=== PATIENT | female | born 1935 | race Caucasian/White ===

== ENCOUNTER 2017-02-23 09:11 | Inpatient (IN) | payer MEDICARE, BC ==
[2017-02-23 09:41] LABS: Glucose,Whole Blood 111 mg/dL (75-99)
[2017-02-23] MEDS ORDERED: SODIUM CHLORIDE 0.9% 500 ML IV STA (09:42)
--- NOTE | 2017-02-23 09:44 | ED ---
General Adult HPI - General Chief complaint: Syncope Stated complaint: WEAKNESS, NEAR SYNCOPE Time Seen by Provider: 02/23/17 09:15 Source: patient, family, RN notes reviewed Mode of arrival: ambulatory Limitations: no limitations - History of Present Illness Initial comments: This is an 81-year-old female who presents emergency department with past medical history significant for hypertension high cholesterol. Patient states this morning she got up went to the bathroom and walk back to bed when she laid down she started getting tingling sensation all over her body and a ringing in her ears and she felt as though she might pass out. Patient states when she opened her eyes at less than the symptoms they remained for a little while. Patient states she did attempt to shut her eyes and a couple more occasions and the symptoms seemed to recur. Patient denied any headache patient denies any numbness or focal weakness. Patient states she has generalized weakness but even that is very slight. Patient denies any chest pain palpitations difficulty breathing or shortness of breath per patient denies any recent fever chills or cough per patient denies any abdominal pain patient denies any nausea vomiting diarrhea. Patient denies any similar symptoms in the past. Patient denies ever having any syncopal episode. - Related Data Home Medications Medication Instructions Recorded Confirmed Aspirin EC [Ecotrin Low Dose] 81 mg PO QAM 02/23/17 02/23/17 Calcium Carbonate [Calcium] 600 mg PO QAM 02/23/17 02/23/17 Lisinopril-Hctz 20-25 mg 1 tab PO QAM 02/23/17 02/23/17 [Zestoretic 20-25] Lovastatin [Mevacor] 40 mg PO HS 02/23/17 02/23/17 Allergies Allergy/AdvReac Type Severity Reaction Status Date / Time Unable to Assess Allergy Unverified 02/23/17 10:24 Review of Systems ROS Statement: Those systems with pertinent positive or pertinent negative responses have been documented in the HPI. ROS Other: All systems not noted in ROS Statement are negative. Past Medical History History of Any Multi-Drug Resistant Organisms: None Reported Past Surgical History: Joint Replacement Additional Past Surgical History / Comment(s): knee replacement, bunion surgery Past Psychological History: No Psychological Hx Reported Smoking Status: Former smoker Past Alcohol Use History: Rare Past Drug Use History: None Reported General Exam - General Exam Comments Initial Comments: GENERAL: Patient is well-developed and well-nourished. Patient is nontoxic and well- hydrated and is in mild distress. ENT: Neck is soft and supple. No significant lymphadenopathy is noted. Oropharynx is clear. Moist mucous membranes. Neck has full range of motion without eliciting any pain. EYES: The sclera were anicteric and conjunctiva were pink and moist. Extraocular movements were intact and pupils were equal round and reactive to light. Eyelids were unremarkable. PULMONARY: Unlabored respirations. Good breath sounds bilaterally. No audible rales rhonchi or wheezing was noted. CARDIOVASCULAR: Irregular rate rhythm at about 120 minutes ABDOMEN: Soft and nontender with normal bowel sounds. No palpable organomegaly was noted. There is no palpable pulsatile mass. SKIN: Skin is clear with no lesions or rashes and otherwise unremarkable. NEUROLOGIC: Patient is alert and oriented x3. Cranial nerves II through XII are grossly intact. Motor and sensory are also intact. Normal speech, volume and content. Symmetrical smile. Cerebellar exam grossly intact. MUSCULOSKELETAL: Normal extremities with adequate strength and full range of motion. No lower extremity swelling or edema. No calf tenderness. LYMPHATICS: No significant lymphadenopathy is noted PSYCHIATRIC: Normal psychiatric evaluation. Limitations: no limitations Course Vital Signs 02/23/17 02/23/17 02/23/17 09:13 10:04 10:28 Temperature 97.0 F L 98.0 F Pulse Rate 109 H 81 98 Respiratory 18 16 16 Rate Blood Pressure 163/96 165/91 168/94 O2 Sat by Pulse 96 98 98 Oximetry Medical Decision Making - Medical Decision Making EKG shows atrial fibrillation with rapid ventricular response at 129 bpm. Patient does not have a history of atrial fibrillation. Patient also has pauses were her heart rate drops down into the 40s and there is no obvious P waves noted associated with the QRS. Patient at these times feels somewhat lightheaded. I spoke with Dr. Marie he wanted the patient heparin but did not want to slow her heart rate down because of these pauses. - Lab Data Result diagrams: 02/23/17 09:50 02/23/17 09:50 Lab Results 02/23/17 02/23/17 02/23/17 Range/Units 09:32 09:50 09:50 WBC 9.7 (3.8-10.6) k/uL RBC 4.68 (3.80-5.40) m/uL Hgb 14.8 (11.4-16.0) gm/dL Hct 43.2 (34.0-46.0) % MCV 92.5 (80.0-100.0) fL MCH 31.7 (25.0-35.0) pg MCHC 34.3 (31.0-37.0) g/dL RDW 13.5 (11.5-15.5) % Plt Count 283 (150-450) k/uL Neutrophils % 66 % Lymphocytes % 26 % Monocytes % 5 % Eosinophils % 0 % Basophils % 0 % Neutrophils # 6.4 (1.3-7.7) k/uL Lymphocytes # 2.5 (1.0-4.8) k/uL Monocytes # 0.5 (0-1.0) k/uL Eosinophils # 0.0 (0-0.7) k/uL Basophils # 0.0 (0-0.2) k/uL PT (9.0-12.0) sec INR (<1.1) APTT (22.0-30.0) sec Sodium 140 (137-145) mmol/L Potassium 4.0 (3.5-5.1) mmol/L Chloride 105 (98-107) mmol/L Carbon Dioxide 25 (22-30) mmol/L Anion Gap 10 mmol/L BUN 18 H (7-17) mg/dL Creatinine 0.74 (0.52-1.04) mg/dL Est GFR (MDRD) Af Amer >60 (>60 ml/min/1.73 sqM) Est GFR (MDRD) Non-Af >60 (>60 ml/min/1.73 sqM) Glucose 120 H (74-99) mg/dL POC Glucose (mg/dL) 111 H (75-99) mg/dL POC Glu Recycling Operations Manager ID Adri Pereira Calcium 9.6 (8.4-10.2) mg/dL Magnesium 2.1 (1.6-2.3) mg/dL Total Bilirubin 1.2 (0.2-1.3) mg/dL AST 25 (14-36) U/L ALT 23 (9-52) U/L Alkaline Phosphatase 80 (38-126) U/L Total Protein 7.4 (6.3-8.2) g/dL Albumin 4.1 (3.5-5.0) g/dL 02/23/17 Range/Units 09:50 WBC (3.8-10.6) k/uL RBC (3.80-5.40) m/uL Hgb (11.4-16.0) gm/dL Hct (34.0-46.0) % MCV (80.0-100.0) fL MCH (25.0-35.0) pg MCHC (31.0-37.0) g/dL RDW (11.5-15.5) % Plt Count (150-450) k/uL Neutrophils % % Lymphocytes % % Monocytes % % Eosinophils % % Basophils % % Neutrophils # (1.3-7.7) k/uL Lymphocytes # (1.0-4.8) k/uL Monocytes # (0-1.0) k/uL Eosinophils # (0-0.7) k/uL Basophils # (0-0.2) k/uL PT 10.6 (9.0-12.0) sec INR 1.0 (<1.1) APTT 23.5 (22.0-30.0) sec Sodium (137-145) mmol/L Potassium (3.5-5.1) mmol/L Chloride (98-107) mmol/L Carbon Dioxide (22-30) mmol/L Anion Gap mmol/L BUN (7-17) mg/dL Creatinine (0.52-1.04) mg/dL Est GFR (MDRD) Af Amer (>60 ml/min/1.73 sqM) Est GFR (MDRD) Non-Af (>60 ml/min/1.73 sqM) Glucose (74-99) mg/dL POC Glucose (mg/dL) (75-99) mg/dL POC Glu Recycling Operations Manager ID Calcium (8.4-10.2) mg/dL Magnesium (1.6-2.3) mg/dL Total Bilirubin (0.2-1.3) mg/dL AST (14-36) U/L ALT (9-52) U/L Alkaline Phosphatase (38-126) U/L Total Protein (6.3-8.2) g/dL Albumin (3.5-5.0) g/dL Critical Care Time Critical Care Time: Yes Total Critical Care Time: 35 Disposition Clinical Impression: Atrial fibrillation with RVR Disposition: ADMITTED IP TO THIS HOSP Referrals: Kendra Davila MD [Primary Care Provider] - 1-2 days Time of Disposition: 10:46
[2017-02-23 10:11] LABS: Basophils % (A) 0 %; CH 32.1; CHCM 34.9; Eosinophils % (A) 0 %; HCT 43.2 % (34.0-46.0); HGB 14.8 gm/dL (11.4-16.0); Luc % (Auto) 2; Lymphocytes # (A) 2.5 k/uL (1.0-4.8); Lymphocytes % (A) 26 %; MCH 31.7 pg (25.0-35.0); MCHC 34.3 g/dL (31.0-37.0); MCV 92.5 fL (80.0-100.0); Mean Platelet Volume 7.8; Monocytes # (A) 0.5 k/uL (0-1.0); Monocytes % (A) 5 %; Neutrophils # (A) 6.4 k/uL (1.3-7.7); Neutrophils % (A) 66 %; RBC 4.68 m/uL (3.80-5.40); RDW 13.5 % (11.5-15.5); WBC 9.7 k/uL (3.8-10.6); WBC (Perox) 8.95
[2017-02-23 10:16] LABS: Partial Thromboplastin Time 23.5 sec (22.0-30.0); Prothrombin Time 10.6 sec (9.0-12.0)
[2017-02-23 10:19] LABS: ALT 23 U/L (9-52); AST 25 U/L (14-36); Alkaline Phosphatase 80 U/L (38-126); Anion Gap 10 mmol/L; Blood Urea Nitrogen 18 mg/dL (7-17); Calcium 9.6 mg/dL (8.4-10.2); Carbon Dioxide 25 mmol/L (22-30); Chloride 105 mmol/L (98-107); Glucose 120 mg/dL (74-99); Magnesium 2.1 mg/dL (1.6-2.3); Non-African American GFR(MDRD) >60 (>60 ml/min/1.73 sqM); Sodium 140 mmol/L (137-145); Total Bilirubin 1.2 mg/dL (0.2-1.3); Total Protein 7.4 g/dL (6.3-8.2)
--- NOTE | 2017-02-23 10:20 | XR ---
EXAMINATION TYPE: XR chest 2V DATE OF EXAM: 02/23/2017 HISTORY: Chest Pain. REFERENCE: NONE. FINDINGS: There are bilateral pulmonary nodules. These are quite dense and likely representing granul omas. Pleural spaces are clear. The heart is not enlarged. IMPRESSION: 1. NO ACUTE INTRATHORACIC ABNORMALITY. 2. 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 THIS COULD BE CONFIRMED WITH A CT SCAN OF THE CHEST OR PRIOR IMAGING.
[2017-02-23 10:42] LABS: Troponin I 0.022 ng/mL (0.000-0.034)
[2017-02-23] MEDS ORDERED: HEPARIN SODIUM,PORCINE 5,000 UNIT/ML 1 ML VIAL IV ONE (10:42)
[2017-02-23] MEDS ORDERED: HEPARIN SODIUM,PORCINE/D5W PMX 25,000 UNIT in DEXTROSE/WATER 1 500ML.BAG IV SCH (10:45)
[2017-02-23] MEDS ORDERED: NITROGLYCERIN SL TABS 0.4 MG TAB SUBLINGUAL PRN (10:46)
--- NOTE | 2017-02-23 13:22 | CONS ---
DATE OF CONSULTATION: CHIEF COMPLAINT: Atrial fibrillation. Ricarda is an 81-year-old lady with history of hypertension and dyslipidemia who presented to the hospital having had episodes of dizziness and near syncope, one episode yesterday and again today. She was found to be in atrial fibrillation with rapid ventricular rate when she first came to the ER and while in the emergency room she has had episodes of bradycardia that were related to conversion to sinus rhythm. Since her initial arrival in the ER, I have had conversations with the ER doctor and directed her care. She is converted to sinus rhythm and currently she is in stable sinus rhythm and is free of symptoms. The patient has hypertension and her blood pressures are poorly controlled. She also has dyslipidemia. I am adding Norvasc 10 mg daily, along with the Zestoretic that she is already on. She is on IV heparin and I am going to switch her to Eliquis 2.5 b.i.d. if she is covered per insurance. We do not have a TSH, which I am going to check. Echocardiogram will be ordered. I reviewed the records from the ER. Past medical history is significant for hypertension and dyslipidemia. Medications include Zestoretic 1 q. daily, lovastatin 40 q. daily. ALLERGIES: There are no known drug allergies. Family history is negative for premature coronary artery disease. Social history is negative for smoking, EtOH abuse or drug abuse. REVIEW OF SYSTEMS: HEENT: Unremarkable. CARDIAC: As described above. RESPIRATORY: Negative. GI: Negative. GENITOURINARY: Negative. ALLERGY/IMMUNOLOGY: Negative. MUSCULOSKELETAL: Significant for arthritis. PSYCHOSOCIAL: Negative. ENDOCRINE: Negative. HEMATOLOGIC: Negative. DERMATOLOGY: Negative. CONSTITUTIONAL: Negative. ONCOLOGICAL: Negative. The rest of the system review is not relevant. On exam, comfortable at rest. Heart rate is around 80 to 90 beats per minute, blood pressure is 168/101, respiratory rate is 18. There is no jugular venous distention. Carotid upstroke is normal. There is no bruit. Chest exam reveals good air entry bilaterally. Heart exam reveals first and second heart sounds regular rhythm. No murmur. Abdomen is soft. Exam of the extremities did not reveal edema. Peripheral pulses are felt. CONCRETE PRODUCTS DISPATCHER exam did not reveal focal neurological deficits. Labs show a hemoglobin of 14.8. Platelet count is 283. Creatinine is 0.7. Potassium is 4. Troponin is 0.022. EKG shows sinus rhythm with poor R wave progression. ASSESSMENT: 1. Paroxysmal atrial fibrillation. 2. Dizziness and near syncope secondary to bradycardia. PLAN: The patient is doing well. I will continue the IV heparin that the patient is on. If insurance covers it, I am going to put her on Eliquis 2.5 b.i.d. I will get another set of troponin. If patient is doing well, we can discharge her home tomorrow and pursue her investigations and therapies in the outpatient setting.
[2017-02-23] MEDS: amLODIPine 10 MG TAB PO SCH (14:10)
[2017-02-23 17:08] LABS: Creatine Kinase MB 1.1 ng/mL (0.0-2.4); Troponin I 0.019 ng/mL (0.000-0.034)
[2017-02-23] MEDS: HEPARIN SODIUM,PORCINE 5,000 UNIT/ML 1 ML VIAL IV PRN (17:44)
[2017-02-23] MEDS: ATORVASTATIN 10 MG TAB PO SCH (22:00)
[2017-02-23 23:28] LABS: Creatine Kinase MB 1.1 ng/mL (0.0-2.4); Troponin I 0.025 ng/mL (0.000-0.034)
[2017-02-24 03:47] LABS: Cholesterol 131 mg/dL (<200); HDL Cholesterol 39 mg/dL (40-60); Triglycerides 114 mg/dL (<150)
[2017-02-24] MEDS: HEPARIN SODIUM,PORCINE 5,000 UNIT/ML 1 ML VIAL IV PRN (06:54)
--- NOTE | 2017-02-24 07:24 | HP ---
DATE OF ADMISSION: Reason for admission is dizziness. HISTORY OF PRESENT ILLNESS: This is an 81-year-old pleasant lady with history of hypertension comes into the hospital with sudden onset symptoms of dizziness and almost passing out. Patient stated that she did not have any blurry vision, was completely unsteady which continued to happen for a period of time. Thereafter, patient did say to have some associated palpitations; however, denies having any chest pain, any focal weakness. Patient was seen in the emergency room, was noted to be in atrial fibrillation with rapid ventricular rate, thereafter converted into sinus rhythm. Patient is currently maintained on IV heparin. During my evaluation, patient states that she does not have similar symptoms any longer; however, on the monitoring engineer, patient appears to have some pauses and appears to have some degree of atrial fibrillation that is ongoing as well. Past medical history significant for hypertension and dyslipidemia. Medications includes: 1. Zestril. 2. Lovastatin. ALLERGIES: No known drug allergies. Doses were reviewed and appropriately reconciled. Family history includes premature coronary artery disease. SOCIAL HISTORY: Significant for smoking; quit about 25 years ago. No EtOH or drug abuse. REVIEW OF SYSTEMS: A 14-point review of systems was done; none pertinent than what was discussed above. Other home medications include: 1. Calcium. 2. Aspirin. PHYSICAL EXAM: VITALS: Temperature 97.3, heart rate is 120, blood pressure is 185/96, saturating 96% on room air. GENERAL APPEARANCE: Alert, oriented x3. LUNGS: Diminished breath sounds. No rhonchi, wheezing or crackles. HEART: Irregularly irregular. No murmurs appreciated. ABDOMEN: Soft, nontender, no organomegaly. Head is atraumatic, normocephalic. Pupils equal, round, and react to light and accommodation. LOWER EXTREMITIES: No edema noted. NEUROLOGICALLY: No focal motor or sensory deficits noted. NECK: Supple. No JVD. No masses appreciated. Laboratory data includes hemoglobin 14.8, hematocrit 42.2, white count of 9.7, platelets of 283. Sodium 140, potassium 4, chloride 105, bicarb 25, BUN 18, creatinine 0.74. TSH is 1.4. ASSESSMENT AND PLAN: 1. New onset atrial fibrillation with rapid ventricular rate with some pauses, is currently going in and out of atrial fibrillation. 2. Hypertension, slightly accelerated without symptoms. 3. Dyslipidemia. 4. History of tobacco use. PLAN: Continue ongoing care. Patient CHADS VASC score is at least 3 at this time. Echocardiogram is obtained. Will have Cardiology evaluate the patient and advise management in regards to rate control at this time. Patient is having pauses. Does state to have some subtle symptoms in the past as well. It does not appear to be clear acute onset of atrial fibrillation. Findings so far have been discussed with the family as well. Continue ongoing care.
[2017-02-24] MEDS: ASPIRIN 325 MG TAB PO SCH (08:49)
[2017-02-24] MEDS: amLODIPine 10 MG TAB PO SCH (08:50)
[2017-02-24] MEDS: LISINOPRIL-HCTZ 20-25 MG 1 EACH TAB PO SCH (08:50)
--- NOTE | 2017-02-24 10:19 | ECHOF ---
Referral Reason:New onset afib MEASUREMENTS -------- HEIGHT: 162.6 cm WEIGHT: 74.8 kg BP: 185/96 RVIDd: 2.4 cm (< 3.3) IVSd: 1.2 cm (0.6 - 1.1) LVIDd: 3.6 cm (3.9 - 5.3) LVPWd: 1.2 cm (0.6 - 1.1) IVSs: 1.7 cm LVIDs: 2.1 cm LVPWs: 1.7 cm LAESV Index (A-L): 17.70 ml/m Ao Diam: 2.8 cm (2.0 - 3.7) AV Cusp: 1.6 cm (1.5 - 2.6) LA Diam: 4.4 cm (2.7 - 3.8) RAP: 5.00 mmHg RVSP: 46.28 mmHg FINDINGS -------- Resting tachycardia (HR>100bpm). This was a technically adequate study. LV size, wall thickness and systolic function are normal, with an EF greater than 55%. Overall left ventricular systolic function is normal with, an EF between 55 - 60 %. The right ventricle is normal in size and function. Normal LA size by volume 22+/-6 ml/m2. The right atrium is normal in size. Aortic valve is trileaflet and is mildly thickened. There is no evidence of aortic regurgitation. There is no evidence of aortic stenosis. The mitral valve leaflets are mildly thickened. There is trace to mild mitral regurgitation. Trace tricuspid regurgitation present. There is no evidence of pulmonary hypertension. The right ventricular systolic pressure, as measured by Doppler, is 46.28mmHg. Pulmonic valve appears structurally normal. The aortic root size is normal. Normal inferior vena cava with normal inspiratory collapse consistent with estimated right atrial pressure of 5 mmHg. The pericardium is normal. There is no pericardial effusion. CONCLUSIONS -------- 1. Resting tachycardia (HR>100bpm). 2. There is no evidence of pulmonary hypertension. 3. The right ventricular systolic pressure, as measured by Doppler, is 46.28mmHg. 4. The aortic root size is normal. 5. There is no pericardial effusion. 6. Overall left ventricular systolic function is normal with, an EF between 55 - 60 %. 7. Normal LA size by volume 22+/-6 ml/m2. 8. Aortic valve is trileaflet and is mildly thickened. 9. There is no evidence of aortic regurgitation. 10. There is no evidence of aortic stenosis. 11. The mitral valve leaflets are mildly thickened. 12. There is trace to mild mitral regurgitation. 13. Trace tricuspid regurgitation present. COOK'S ASSISTANT: Shayan Valerio RDCS
[2017-02-24] MEDS ORDERED: ceFAZolin 2 GM in SODIUM CHLORIDE 0.9% 100 ML IVPB ONE (12:15)
[2017-02-24] MEDS ORDERED: ceFAZolin 1,000 MG in SODIUM CHLORIDE 0.9% IRRIGATIO 250 ML IRRIGATION ONE (12:15)
[2017-02-24] MEDS ORDERED: IODIXANOL 320 MG/ML 100 ML IV ONE (12:30)
[2017-02-24] MEDS ORDERED: fentaNYL (PF) 50 MCG/ML 2 ML AMP ONE (12:36)
[2017-02-24] MEDS ORDERED: MIDAZOLAM 2 MG/2 ML VIAL ONE (12:36)
[2017-02-24] MEDS: MIDAZOLAM 2 MG/2 ML VIAL IVP ONE ×2 (12:40→12:52)
[2017-02-24] MEDS ORDERED: fentaNYL (PF) 50 MCG/ML 2 ML AMP IV ONE (12:40)
[2017-02-24] MEDS ORDERED: IV FLUID CONTINUATION 400 ML IV ONE (12:42)
[2017-02-24] MEDS ORDERED: LIDOCAINE 1% INJ 10MG/ML (20 ML MDV) SQ ONE (12:45)
--- NOTE | 2017-02-24 16:54 | P.PN ---
Subjective HISTORY OF PRESENT ILLNESS: This is an 81-year-old pleasant lady with history of hypertension comes into the hospital with sudden onset symptoms of dizziness and almost passing out. Patient stated that she did not have any blurry vision, was completely unsteady which continued to happen for a period of time. Thereafter, patient did say to have some associated palpitations; however, denies having any chest pain, any focal weakness. Patient was seen in the emergency room, was noted to be in atrial fibrillation with rapid ventricular rate, thereafter converted into sinus rhythm. Patient is currently maintained on IV heparin. During my evaluation, patient states that she does not have similar symptoms any longer; however, on the pvc monitor, patient appears to have some pauses and appears to have some degree of atrial fibrillation that is ongoing as well. 02/24/2017 Doing well today status post a pacemaker placement PHYSICAL EXAM: GENERAL APPEARANCE: Alert, oriented x3. LUNGS: Diminished breath sounds. No rhonchi, wheezing or crackles. HEART: Irregularly irregular. No murmurs appreciated. ABDOMEN: Soft, nontender, no organomegaly. Head is atraumatic, normocephalic. Pupils equal, round, and react to light and accommodation. LOWER EXTREMITIES: No edema noted. NEUROLOGICALLY: No focal motor or sensory deficits noted. NECK: Supple. No JVD. No masses appreciated. . Objective - Vital Signs Vital signs: Vital Signs Temp 97.4 F L 02/24/17 15:55 Pulse 78 02/24/17 15:55 Resp 12 02/24/17 16:00 BP 105/53 02/24/17 15:55 Pulse Ox 92 L 02/24/17 15:55 Intake & Output 02/23/17 02/24/17 02/24/17 18:59 06:59 18:59 Intake Total 241.829 274.096 540 Output Total 200 400 Balance 241.829 74.096 140 Weight 74.843 kg 75.1 kg Intake: IV 300 Intake, IV Titration 121.829 274.096 Amount Heparin Sodium,Porcine/ 121.829 274.096 D5w Pmx 25,000 unit In Dextrose/Water 1 500ml. bag @ 12 UNITS/KG/HR 17. 96 mls/hr IV .Q24H [facility] Rx #:[id number] Oral 120 240 Output: Urine 200 400 Other: Voiding Method Toilet Toilet # Voids 0 1 # Bowel Movements 0 - Labs CBC & Chem 7: 02/23/17 09:50 02/23/17 09:50 Labs: Abnormal Lab Results - Last 24 Hours (Table) 02/23/17 02/23/17 02/23/17 Range/Units 09:50 16:22 22:32 APTT 42.3 H 46.7 H (22.0-30.0) sec HDL Cholesterol 39 L (40-60) mg/dL 02/24/17 Range/Units 05:32 APTT 35.0 H (22.0-30.0) sec HDL Cholesterol (40-60) mg/dL Assessment and Plan Plan: ASSESSMENT AND PLAN: 1. New onset atrial fibrillation with rapid ventricular rate with some pauses, is currently going in and out of atrial fibrillation. 2. Hypertension, slightly accelerated without symptoms. 3. Dyslipidemia. 4. History of tobacco use. 5. Tachy Pranav syndrome PLAN: Continue ongoing care. Patient CHADS VASC score is at least 3 at this time. Echocardiogram is obtained. Anticoagulation depending on her insurance Potential discharge in the a.m.
[2017-02-24] MEDS: ceFAZolin 2 GM in SODIUM CHLORIDE 0.9% 100 ML IVPB SCH ×2 (17:35→23:24)
[2017-02-24] MEDS: ATORVASTATIN 10 MG TAB PO SCH (21:08)
[2017-02-25] MEDS: ACETAMINOPHEN TAB 325 MG TAB PO PRN (01:37)
[2017-02-25] MEDS: ceFAZolin 2 GM in SODIUM CHLORIDE 0.9% 100 ML IVPB SCH ×2 (06:05→12:18)
[2017-02-25] MEDS ORDERED: METOPROLOL TARTRATE 25 MG TAB PO ONE (06:15)
[2017-02-25 07:43] LABS: INR 1.1 (<1.1)
--- NOTE | 2017-02-25 07:58 | XR ---
EXAMINATION TYPE: XR chest 2V DATE OF EXAM: 02/25/2017 COMPARISON: 02/23/2017 HISTORY: Shortness of breath TECHNIQUE: Frontal and lateral views of the chest are obtained. FINDINGS: Dual-lead pacer device is in place with distal leads within the right atrium and right ventricle resp ectively. There is no evidence for pneumothorax. Scattered senescent parenchymal changes noted. Hyperinflation compatible with COPD. No evidence for infiltrate. No evidence for atelectasis. Heart size is stable. Mediastinal structures are stable and grossly unremarkable. No evidence for hilar prominence. Degenerative changes dorsal spine. IMPRESSION: 1. No evidence for acute pulmonary disease.
[2017-02-25] MEDS: ASPIRIN 325 MG TAB PO SCH (08:55)
[2017-02-25] MEDS: LISINOPRIL-HCTZ 20-25 MG 1 EACH TAB PO SCH (08:55)
[2017-02-25] MEDS: amLODIPine 10 MG TAB PO SCH (08:55)
[2017-02-25] MEDS ORDERED: ENOXAPARIN 120 MG/0.8 ML SYRINGE SQ SCH (09:00)
--- NOTE | 2017-02-25 13:15 | P.PN ---
Subjective This is a pleasant 81-year-old lady with a history of hypertension and dyslipidemia who presented to the hospital having had episodes of dizziness and near syncope. She was found to be in atrial fibrillation with rapid ventricular response as well as episodes of bradycardia postconversion. Patient underwent implantation of a permanent pacemaker by Dr. Youngblood yesterday and is doing well. Pacemaker was interrogated by [employer] this morning and found to be functioning normally. Objective - Vital Signs Vital signs: Vital Signs Temp 97.6 F 02/25/17 11:34 Pulse 63 02/25/17 11:34 Resp 20 02/25/17 11:34 BP 128/62 02/25/17 11:34 Pulse Ox 94 L 02/25/17 11:34 Intake & Output 02/24/17 02/25/17 02/25/17 18:59 06:59 18:59 Intake Total 780 100 Output Total 400 Balance 380 100 Weight 74.8 kg Intake: IV 300 Intake, IV Titration 100 Amount ceFAZolin 2 gm In Sodium 100 Chloride 0.9% 100 ml @ 100 mls/hr IVPB Q6H [facility] Rx#:[id number] Oral 480 Output: Urine 400 Other: Voiding Method Toilet Toilet # Voids 1 # Bowel Movements 0 - Exam PHYSICAL EXAMINATION: HEENT: Head is atraumatic, normocephalic. Pupils equal, round. Neck is supple. There is no elevated jugular venous pressure. HEART EXAMINATION: Heart sounds regular, S1 and S2 normal. No murmur or gallop heard. CHEST EXAMINATION: Lungs are clear to auscultation and precussion. No chest wall tenderness is noted on palpation or with deep breathing. LIC site soft with dressing dry and intact ABDOMEN: Soft, nontender. Bowel sounds are heard. No organomegaly noted. EXTREMITIES: 2+ peripheral pulses with no evidence of peripheral edema and no calf tenderness noted. NEUROLOGIC patient is awake, alert and oriented x3. . - Labs CBC & Chem 7: 02/23/17 09:50 02/23/17 09:50 Assessment and Plan Plan: Assessment and plan #1 paroxysmal atrial fibrillation #2 dizziness and near syncope #3 post conversion bradycardia, symptomatic From cardiology's perspective, we will start the patient on Lovenox tomorrow. Start Coumadin tonight. We anticipate the patient will be discharged home with the next 24 hours with Lovenox bridging. She'll follow-up in the office for device interrogation and follow up with Dr. Marie. The above dictated assessment and findings were discussed with signing physician. The impression and plan of care have been directed as dictated. Rosario Carpio, Nurse Practitioner, acting as scribe for signing physician.
[2017-02-25] MEDS ORDERED: WARFARIN 5 MG TAB PO ONE (18:00)
--- NOTE | 2017-02-25 18:28 | P.PN ---
Subjective HISTORY OF PRESENT ILLNESS: This is an 81-year-old pleasant lady with history of hypertension comes into the hospital with sudden onset symptoms of dizziness and almost passing out. Patient stated that she did not have any blurry vision, was completely unsteady which continued to happen for a period of time. Thereafter, patient did say to have some associated palpitations; however, denies having any chest pain, any focal weakness. Patient was seen in the emergency room, was noted to be in atrial fibrillation with rapid ventricular rate, thereafter converted into sinus rhythm. Patient is currently maintained on IV heparin. During my evaluation, patient states that she does not have similar symptoms any longer; however, on the it field technician, patient appears to have some pauses and appears to have some degree of atrial fibrillation that is ongoing as well. 02/24/2017 Doing well today status post a pacemaker placement 02/25/17 doing well No overnight burst of a fib No significant pain reported at the insertion site on the chest. PHYSICAL EXAM: GENERAL APPEARANCE: Alert, oriented x3. LUNGS: Diminished breath sounds. No rhonchi, wheezing or crackles. HEART: Irregularly irregular. No murmurs appreciated. ABDOMEN: Soft, nontender, no organomegaly. Head is atraumatic, normocephalic. Pupils equal, round, and react to light and accommodation. LOWER EXTREMITIES: No edema noted. NEUROLOGICALLY: No focal motor or sensory deficits noted. NECK: Supple. No JVD. No masses appreciated. . Objective - Vital Signs Vital signs: Vital Signs Temp 97.2 F L 02/25/17 16:00 Pulse 68 02/25/17 16:00 Resp 20 02/25/17 16:00 BP 126/58 02/25/17 16:00 Pulse Ox 97 02/25/17 16:00 Intake & Output 02/24/17 02/25/17 02/25/17 18:59 06:59 18:59 Intake Total 780 100 460 Output Total 400 700 Balance 380 100 -240 Weight 74.8 kg 74.8 kg Intake: IV 300 Intake, IV Titration 100 100 Amount ceFAZolin 2 gm In Sodium 100 100 Chloride 0.9% 100 ml @ 100 mls/hr IVPB Q6H GHULAM Rx#:[id number] Oral 480 360 Output: Urine 400 700 Other: Voiding Method Toilet Toilet # Voids 1 1 # Bowel Movements 0 - Labs CBC & Chem 7: 06/01/17 09:50 02/23/17 09:50 Assessment and Plan Plan: ASSESSMENT AND PLAN: 1. New onset atrial fibrillation with rapid ventricular rate with some pauses, is currently going in and out of atrial fibrillation. 2. Hypertension, slightly accelerated without symptoms. 3. Dyslipidemia. 4. History of tobacco use. 5. Tachy Pranav syndrome PLAN: start coumadin 5mg today could be discharged on lovenox bridge vs just coumadin Potential discharge in the a.m.
[2017-02-25] MEDS: METOPROLOL TARTRATE 25 MG TAB PO SCH (21:40)
[2017-02-25] MEDS: ATORVASTATIN 10 MG TAB PO SCH (21:40)
[2017-02-26] MEDS: ACETAMINOPHEN TAB 325 MG TAB PO PRN ×2 (01:53→09:04)
[2017-02-26] MEDS: ASPIRIN 325 MG TAB PO SCH (08:57)
[2017-02-26] MEDS: LISINOPRIL-HCTZ 20-25 MG 1 EACH TAB PO SCH (08:57)
[2017-02-26] MEDS: amLODIPine 10 MG TAB PO SCH (08:57)
[2017-02-26] MEDS: METOPROLOL TARTRATE 25 MG TAB PO SCH (08:57)
[2017-02-26] MEDS ORDERED: ENOXAPARIN 60 MG/0.6 ML SYRINGE SQ SCH (09:00)
[2017-02-26 09:25] LABS: INR 1.3 (<1.1)
[2017-02-26 10:00] VITALS: RESP 20
--- NOTE | 2017-02-26 10:43 | PN ---
This is an 81-year-old lady who was admitted to hospital with atrial fibrillation with rapid ventricular rate and episodes of bradycardia during cardioversion during conversion to sinus rhythm. She underwent permanent pacemaker placement doing well and is free of symptoms. Post pacer x-ray did not reveal any evidence of pneumothorax. This morning, patient is feeling well and is free of symptoms. On exam, vital signs are stable. There is no jugular venous distention. Chest exam reveals good air entry bilaterally. Heart exam reveals first and second heart sounds. No gallop. Exam of the extremities did not reveal any edema. Peripheral pulses are felt. Pacer site appears normal. ASSESSMENT: 1. Sick sinus syndrome, status post permanent pacemaker placement. 2. Paroxysmal atrial fibrillation. 3. Dyslipidemia. 4. Hypertension. PLAN: The patient is doing well and is stable to be discharged home. She will go home on Lovenox 60 b.i.d. and Coumadin 5 mg daily. Continue the metoprolol, Zestoretic, Lipitor and Norvasc. We will follow her up next week.
[2017-02-26 11:29] VITALS: BP 123/62; PULSE 60; TEMP 97.1
[2017-02-26] MEDS ORDERED: WARFARIN 3 MG TAB PO ONE (13:57)
--- NOTE | 2017-02-26 18:02 | P.DS ---
Providers Date of admission: 02/23/17 10:48 Attending physician: Iris Velasquez Consults: 02/23/17 10:46 Consult Physician Urgent Consulting Provider: [facility] Consult Reason/Comments: A. fib with rapid ventricular response, bradycardia , near syncope Do you want consulting provider notified?: Yes Primary care physician: Kendra Davila [facility] Course: HISTORY OF PRESENT ILLNESS: This is an 81-year-old pleasant lady with history of hypertension comes into the hospital with sudden onset symptoms of dizziness and almost passing out. Patient stated that she did not have any blurry vision, was completely unsteady which continued to happen for a period of time. Thereafter, patient did say to have some associated palpitations; however, denies having any chest pain, any focal weakness. Patient was seen in the emergency room, was noted to be in atrial fibrillation with rapid ventricular rate, thereafter converted into sinus rhythm. Patient is currently maintained on IV heparin. During my evaluation, patient states that she does not have similar symptoms any longer; however, on the ekg monitor, patient appears to have some pauses and appears to have some degree of atrial fibrillation that is ongoing as well. 02/24/2017 Doing well today status post a pacemaker placement 02/25/17 doing well No overnight burst of a fib No significant pain reported at the insertion site on the chest. PHYSICAL EXAM: GENERAL APPEARANCE: Alert, oriented x3. LUNGS: Diminished breath sounds. No rhonchi, wheezing or crackles. HEART: Irregularly irregular. No murmurs appreciated. ABDOMEN: Soft, nontender, no organomegaly. Head is atraumatic, normocephalic. Pupils equal, round, and react to light and accommodation. LOWER EXTREMITIES: No edema noted. NEUROLOGICALLY: No focal motor or sensory deficits noted. NECK: Supple. No JVD. No masses appreciated. . Assessment and Plan Plan: ASSESSMENT AND PLAN: 1. New onset atrial fibrillation with rapid ventricular rate with some pauses, is currently going in and out of atrial fibrillation. 2. Hypertension, slightly accelerated without symptoms. 3. Dyslipidemia. 4. History of tobacco use. 5. Tachy Pranav syndrome PLAN: start coumadin 3 mg today could be discharged on lovenox bridge follow up outpatient for PT/INR check dietary restrictions and activity restrictions discussed Plan - Discharge Summary New Discharge Prescriptions: New Enoxaparin [Lovenox] 60 mg SQ Q12H #10 syringe amLODIPine [Norvasc] 10 mg PO DAILY #30 tab Metoprolol Tartrate [Lopressor] 25 mg PO BID #60 tab Warfarin [Coumadin] 3 mg PO DAILY #30 tab Continue Lovastatin [Mevacor] 40 mg PO HS Lisinopril-Hctz 20-25 mg [Zestoretic 20-25] 1 tab PO QAM Aspirin EC [Ecotrin Low Dose] 81 mg PO QAM Calcium Carbonate [Calcium] 600 mg PO QAM Discharge Medication List Aspirin EC [Ecotrin Low Dose] 81 mg PO QAM 02/23/17 [History] Calcium Carbonate [Calcium] 600 mg PO QAM 02/23/17 [History] Lisinopril-Hctz 20-25 mg [Zestoretic 20-25] 1 tab PO QAM 02/23/17 [History] Lovastatin [Mevacor] 40 mg PO HS 02/23/17 [History] Enoxaparin [Lovenox] 60 mg SQ Q12H #10 syringe 02/25/17 [Rx] Metoprolol Tartrate [Lopressor] 25 mg PO BID #60 tab 02/26/17 [Rx] Warfarin [Coumadin] 3 mg PO DAILY #30 tab 02/26/17 [Rx] amLODIPine [Norvasc] 10 mg PO DAILY #30 tab 02/26/17 [Rx] Follow up Appointment(s)/Referral(s): Kendra Davila MD [Primary Care Provider] - 1-2 days (call office when open to make follow up appointment) Nito Marie MD [STAFF PHYSICIAN] - 1 Week (call office when open to make follow up appointment) Discharge Disposition: HOME SELF-CARE
--- NOTE | 2017-02-27 13:32 | P.PCN ---
Date of Procedure: 02/24/17 Preoperative Diagnosis: Tachybradycardia syndrome with dizziness and near syncope Postoperative Diagnosis: The same Procedure(s) Performed: Permanent pacemaker implantation and axillary venography Implants: Indications for Procedure: Operative Findings: Description of Procedure: HISTORY: This is a 81-year-old female with history of hypertension, was admitted to the hospital with complaints of episodes of dizziness and near syncope. Patient was found to have evidence of atrial fibrillation which is paroxysmal. Patient is having long pauses during conversion from atrial fibrillation to sinus rhythm. This was associated symptoms of dizziness. Because of tachybradycardia syndrome. Patient is advised to have permanent pacemaker implantation. CONSENT:I have discussed the risks, benefits and alternative therapies for the above-mentioned procedure and for both sedation/analgesia as well as necessary blood product administration, if indicated, as they pertain to this patient. The patient has indicated understanding and acceptance of the risks and procedures discussed. PROCEDURE: Patient was brought to the lab in a fasting state. Patient was prepped and draped in the usual fashion. Patient was given IV sedation with fentanyl and Versed. The skin below the left clavicle was infiltrated with lidocaine. An incision was made parallel to deltopectoral groove was deepened until the pectoral fascia was exposed. A pocket was created by blunt dissection and cautery. Axillary venography was performed to delineate the course of the axillary vein. 2 sticks were performed into extrathoracic portion of the axillary vein and 2 sheaths were advanced over the guidewires and left in subclavian vein. LEADS: ATRIAL: This is manufactured by [employer]. Model number is 7740. serial number is [id number] VENTRICULAR: This is manufactured by [employer]. Model number is 7741. Serial number is [id number]. THE DEVICE: This is manufactured by [employer]. Model number is L301, serial number is [id number] The ventricular lead is maneuvered l with help of a straight and curved stylets into the left ventricle apical region. Satisfactory position was obtained and threshold measurements were made. The atrial lead was then maneuvered into the right atrial appendage. And thresholds were obtained. THRESHOLDS: ATRIUM: The minimum patient threshold was 0.7 V at a pulse width of 0.4 ms. The impedance is 6 and 24 ohms. P-wave: 3.8 mV VENTRICLE : The minimal patient threshold was 0.4 holes at a pulse width of 0.4 ms. The impedance is 717 ohms . R-wave: 25 mV The leads and pulse generator remained in the pocket after it was washed with antibiotics. Pocket was closed in the usual fashion. The fascia was closed with 2-0 Prolene ,the subcutaneous tissue was closed with 3-0 Prolene and the skin was closed with 4-0 Prolene. PROGRAMMING: MODE: DDDR RATE: 60 to 120 OUTPUT: Atrium : 3.5 V at 0.4 ms, Ventricle : 3.5 V at 0.4 ms FINAL IMPRESSION: #1. Successful implantation of dual-chamber pacemaker. #2. Axillary venography COMPLICATIONS: None PLAN: Patient will be monitored on the telemetry unit. Prophylactic antibiotics will be continued. If patient remains stable. Could be discharged home within next 24-48 hours. We'll also start her on beta blockers. Anticoagulation to be started from tomorrow.
== END 2017-02-26 14:34 | disposition home or self-care (01) | DRG 244 ==
LOC: EC 09:11 → 6SEL 10:48
PROVIDERS: ADMIT Hospitalist; ATTEND Hospitalist
PROC: 02HL3JZ Insertion of Pacemaker Lead into Left Ventricle, Percutaneous Approach (ICD-10-PCS; principal; 2017-02-24 12:15)
PROC: 02H63JZ Insertion of Pacemaker Lead into Right Atrium, Percutaneous Approach (ICD-10-PCS; principal; 2017-02-24 12:15)
PROC: 0JH606Z Insertion of Pacemaker, Dual Chamber into Chest Subcutaneous Tissue and Fascia, Open Approach (ICD-10-PCS; principal; 2017-02-24 12:15)
DX: I49.5 Sick sinus syndrome (principal); I48.0 Paroxysmal atrial fibrillation; I10 Essential (primary) hypertension; E78.5 Hyperlipidemia, unspecified; E78.00 Pure hypercholesterolemia, unspecified; Z79.899 Other long term (current) drug therapy; Z87.891 Personal history of nicotine dependence; Z96.659 Presence of unspecified artificial knee joint
CPT/HCPCS: 33208; 36415; 71020; 80053; 80061; 82550; 82553; 83735; 84443; 84484; 85025; 85610; 85730; 93005; 93306

== ENCOUNTER → 2017-08-02 | Outpatient (CLI) | payer MEDICARE, BC ==
--- NOTE | 2017-08-04 10:56 | MM ---
Reason for exam: screening (asymptomatic). Last mammogram was performed 1 year and 6 months ago. History: Patient is postmenopausal. Family history of breast cancer in sister at age 92. Took estrogen for 15 years beginning at age 49. Took progesterone for 15 years beginning at age 49. Physical Findings: A clinical breast exam by your physician is recommended on an annual basis and results should be correlated with mammographic findings. MG 3D Screening Mammo W/Cad Bilateral CC and MLO view(s) were taken. Prior study comparison: February 11, 2016, bilateral MG 3d screening mammo w/cad. January 28, 2015, bilateral MG screening mammo w CAD. The breast tissue is heterogeneously dense. This may lower the sensitivity of mammography. Pacemaker generator. Lateral asymmetric density left breast middle to posterior depth incompletely disperses on 3D images but has no clear correlate on the MLO view. It is slightly more defined from priors. A 6 month follow up is recommended. ASSESSMENT: Probably benign, BI-RAD 3 RECOMMENDATION: Follow-up diagnostic mammogram of the left breast in 6 months. MADELINE
== END | disposition home or self-care (01) ==
LOC: RADMAMWWP 09:30
PROVIDERS: ATTEND Internal Medicine
DX: Z12.31 Encounter for screening mammogram for malignant neoplasm of breast (principal)
CPT/HCPCS: 77063; G0202

== ENCOUNTER → 2018-08-03 | Outpatient (CLI) | payer MEDICARE, BC ==
--- NOTE | 2018-08-06 12:02 | MM ---
Reason for exam: screening (asymptomatic). Last mammogram was performed 1 year ago. History: Patient is postmenopausal. Family history of breast cancer in sister at age 92. Took estrogen for 15 years beginning at age 49. Took progesterone for 15 years beginning at age 49. Physical Findings: A clinical breast exam by your physician is recommended on an annual basis and results should be correlated with mammographic findings. MG 3D Screening Mammo W/Cad Bilateral CC and MLO view(s) were taken. Prior study comparison: August 02, 2017, bilateral MG 3d screening mammo w/cad. February 11, 2016, bilateral MG 3d screening mammo w/cad. The breast tissue is heterogeneously dense. This may lower the sensitivity of mammography. No significant changes when compared with prior studies. ASSESSMENT: Benign, BI-RAD 2 RECOMMENDATION: Routine screening mammogram of both breasts in 1 year.
== END ==
LOC: RADMAMWWP 11:02
PROVIDERS: ATTEND Internal Medicine
DX: Z12.31 Encounter for screening mammogram for malignant neoplasm of breast (principal)
CPT/HCPCS: 77063; 77067

== ENCOUNTER → 2019-08-23 | Outpatient (CLI) | payer MEDICARE, BC ==
--- NOTE | 2019-08-23 12:03 | MM ---
Reason for exam: screening (asymptomatic). Last mammogram was performed 1 year and 1 month ago. History: Patient is postmenopausal. Family history of breast cancer in sister at age 92. Took estrogen for 15 years beginning at age 49. Took progesterone for 15 years beginning at age 49. Physical Findings: A clinical breast exam by your physician is recommended on an annual basis and results should be correlated with mammographic findings. MG 3D Screening Mammo W/Cad Bilateral CC and MLO view(s) were taken. Prior study comparison: August 03, 2018, bilateral MG 3d screening mammo w/cad. August 02, 2017, bilateral MG 3d screening mammo w/cad. The breast tissue is heterogeneously dense. This may lower the sensitivity of mammography. There is no discrete abnormality. Left axillary pacemaker. ASSESSMENT: Benign, BI-RAD 2 RECOMMENDATION: Routine screening mammogram of both breasts in 1 year.
== END | disposition home or self-care (01) ==
LOC: RADMAMWWP 09:54
PROVIDERS: ATTEND Internal Medicine
DX: Z12.31 Encounter for screening mammogram for malignant neoplasm of breast (principal)
CPT/HCPCS: 77063; 77067

== ENCOUNTER → 2020-08-25 | Outpatient (CLI) | payer MEDICARE, BC | END | disposition home or self-care (01) | LOC: LABWHC1 15:57 | PROVIDERS: ATTEND Internal Medicine | DX: R51.9 Headache, unspecified (principal); R50.9 Fever, unspecified | CPT/HCPCS: U0003; C9803 ==

== ENCOUNTER → 2021-01-15 | Outpatient (CLI) | payer MEDICARE, BC ==
--- NOTE | 2021-01-18 11:59 | MM ---
Reason for exam: screening (asymptomatic). Last mammogram was performed 1 year and 5 months ago. History: Patient is postmenopausal. Family history of breast cancer in sister at age 92. Took estrogen for 15 years beginning at age 49. Took progesterone for 15 years beginning at age 49. Physical Findings: A clinical breast exam by your physician is recommended on an annual basis and results should be correlated with mammographic findings. MG 3D Screening Mammo W/Cad Bilateral CC and MLO view(s) were taken. Prior study comparison: August 23, 2019, bilateral MG 3d screening mammo w/cad. August 03, 2018, bilateral MG 3d screening mammo w/cad. The breast tissue is heterogeneously dense. This may lower the sensitivity of mammography. There are benign appearing round calcifications bilaterally. There is no discrete abnormality. Left axillary pacemaker. ASSESSMENT: Benign, BI-RAD 2 RECOMMENDATION: Routine screening mammogram of both breasts in 1 year.
== END | disposition home or self-care (01) ==
LOC: RADMAMWWP 10:08
PROVIDERS: ATTEND Internal Medicine
DX: Z12.31 Encounter for screening mammogram for malignant neoplasm of breast (principal); Z80.3 Family history of malignant neoplasm of breast; Z78.0 Asymptomatic menopausal state
CPT/HCPCS: 77063; 77067

== ENCOUNTER → 2021-10-25 | Outpatient (CLI) | payer MEDICARE, BC ==
--- NOTE | 2021-10-25 10:36 | XR ---
EXAMINATION TYPE: XR bone survey complete DATE OF EXAM: 10/25/2021 COMPARISON: NONE HISTORY: Anemia iron deficiency. Red cell aplasia. Hyperlipidemia. Essential hypertension. Bony calvarium : 2 views of the bony calvarium demonstrate no definitive lytic lesion. Chest x-ray: There is dual-lead pacemaker. Heart size upper limits of normal. Lungs are grossly clear . No definitive lytic destructive rib lesion. Slight scoliotic curvature of the thoracolumbar junctio n. Multilevel disc space narrowing and vacuum disc phenomenon in the lumbar spine. No definitive foca l lytic large osseous lesion. Spine: Two views of the cervical, thoracic and lumbar spines are submitted. Cervical spine shows ossi fic fusion at C4-C5 level. No definitive lytic lesion. PELVIS: Single view of the pelvis demonstrates lucency overlying bowel gas making evaluation slightl y suboptimal. No definitive suspicious osseous lytic lesion. UPPER EXTREMITIES: Single view of bilateral upper extremities shows degenerative spurring glenohumera l joints. No definitive suspicious lytic lesion. LOWER EXTREMITIES: Single view of the lower extremities shows partial visualization of metallic hardw are level of the left knee. No definitive suspicious lytic osseous lesion. IMPRESSION: No distinct suspicious lytic lesion identified.
[2021-10-25 19:01] LABS: Total Volume 24 Hour,Urine 1800 mL
[2021-10-25 22:00] LABS: Total Protein 24 Hour,Urine 19.4 mg/dL (0.0-165.0)
== END | disposition home or self-care (01) ==
LOC: RADXRWHC 09:35
PROVIDERS: ATTEND Internal Medicine Hematology & Oncology
DX: D60.9 Acquired pure red cell aplasia, unspecified (principal); D50.9 Iron deficiency anemia, unspecified; I10 Essential (primary) hypertension; E78.5 Hyperlipidemia, unspecified
CPT/HCPCS: 77075; 81050; 84156

== ENCOUNTER → 2024-08-15 | Outpatient (CLI) | payer MEDICARE, BC ==
[2024-08-15 21:07] LABS: BUN/Creat Ratio 30.88 Ratio (12.00-20.00); Blood Urea Nitrogen 24.7 mg/dL (9.0-27.0); Calcium 9.4 mg/dL (8.7-10.3); Carbon Dioxide 21.6 mmol/L (21.6-31.8); Chloride 97 mmol/L (96-109); Glucose 96 mg/dL (70-110); Potassium 4.7 mmol/L (3.5-5.5); Sodium 134 mmol/L (135-145)
[2024-08-15 21:46] LABS: NT-Pro-B-Type Natriuretic Pept 4865 pg/mL (0-450)
== END | disposition home or self-care (01) ==
LOC: LABWHC1 15:22
PROVIDERS: ATTEND Internal Medicine Cardiovascular Disease
DX: Z00.00 Encounter for general adult medical examination without abnormal findings (principal)
CPT/HCPCS: 36415; 80048; 83880

== ENCOUNTER → 2024-08-15 | Outpatient (CLI) | payer MEDICARE, BC ==
--- NOTE | 2024-08-15 16:43 | XR ---
EXAMINATION TYPE: XR chest 2V DATE OF EXAM: 08/15/2024 4:07 PM COMPARISON: Chest radiographs from 02/25/2017 CLINICAL INDICATION: Female, 88 years old with history of J90; [facility] TECHNIQUE: XR chest 2V Frontal and lateral views of the chest. FINDINGS: Lungs/Pleura: No evidence of focal consolidation or pneumothorax. Blunting of the costophrenic angles is present. Pulmonary vascularity: Pulmonary vascular congestion. Heart/mediastinum: Cardiomediastinal silhouette is enlarged and stable. Two lead cardiac conduction d evice overlying the left hemithorax with lead tips projecting over the right ventricle and right atri um. Musculoskeletal: No acute osseous pathology. Other findings: None Lines/Tubes: IMPRESSION: Cardiomegaly, pulmonary vascular congestion and bilateral pleural effusions. Correlate with BNP for c ongestive heart failure. [facility] Yolanda Hernandez, , 08/15/2024 4:40 PM
== END | disposition home or self-care (01) ==
LOC: RADXRMAIN 15:54
PROVIDERS: ATTEND Internal Medicine Cardiovascular Disease
DX: J90 Pleural effusion, not elsewhere classified (principal); R09.89 Other specified symptoms and signs involving the circulatory and respiratory systems; I51.7 Cardiomegaly
CPT/HCPCS: 71046